=== PATIENT | male | born 1985 ===

== ENCOUNTER 2020-01-29 23:33 | Emergency (ER) | payer OTHER ==
[~2020-01-29] VITALS: Ht 170.2 cm; Wt 100.0 kg
[2020-01-29] MEDS ORDERED: SULF1TAB42 PO (23:40)
[2020-01-29 23:55] VITALS: BP 150/76
== END 2020-01-30 00:13 | disposition home or self-care (01) ==
LOC: EMS 23:33
DX: L02.411 Cutaneous abscess of right axilla (principal)